=== PATIENT | male | born 1985 | race Asian ===

== ENCOUNTER 2020-06-08 16:01 | Emergency (ER) | payer OTHER ==
[~2020-06-08] VITALS: Ht 182.9 cm; Wt 108.9 kg
[2020-06-08 16:13] VITALS: TEMP 98.9
[2020-06-08 17:50] VITALS: BP 152/91
== END 2020-06-08 17:50 | disposition home or self-care (01) ==
LOC: ED 16:01
DX: S39.012A Strain of muscle, fascia and tendon of lower back, initial encounter (principal); S63.8X2A Sprain of other part of left wrist and hand, initial encounter; V58.0XXA Driver of pick-up truck or van injured in noncollision transport accident in nontraffic accident, initial encounter; Y92.89 Other specified places as the place of occurrence of the external cause
CPT/HCPCS: 99283

== ENCOUNTER 2020-06-14 14:53 | Outpatient (CLI) | payer OTHER | END 2020-06-14 19:54 | disposition home or self-care (01) | LOC: LABW 14:53 | PROVIDERS: ATTEND Family Medicine | DX: Z20.2 Contact with and (suspected) exposure to infections with a predominantly sexual mode of transmission (principal); M54.5 Low back pain | CPT/HCPCS: 81000; 87490; 87590 ==

== ENCOUNTER 2020-09-07 13:26 | Outpatient (CLI) | payer OTHER | END 2020-09-07 20:10 | disposition home or self-care (01) | LOC: LAB 13:26 | PROVIDERS: ATTEND Family Medicine | DX: U07.1 COVID-19 (principal); Z20.828 Contact with and (suspected) exposure to other viral communicable diseases | CPT/HCPCS: 87635; G2023; U0003 ==

== ENCOUNTER 2020-09-21 12:29 | Outpatient (CLI) | payer OTHER | END 2020-09-21 23:12 | disposition home or self-care (01) | LOC: LAB 12:29 | PROVIDERS: ATTEND Family Medicine | DX: Z20.828 Contact with and (suspected) exposure to other viral communicable diseases (principal) | CPT/HCPCS: 87635; G2023; U0003 ==